=== PATIENT | female | born 1955 | race Caucasian/White ===

== ENCOUNTER 2018-06-06 06:17 | Day surgery (SDC) | payer MEDICAID ==
[2018-06-02 12:06] VITALS: BMI 28.8
[2018-06-06] MEDS ORDERED: Bupivacaine 0.25% 20 ML INJ IJ ONE (07:15)
[2018-06-06] MEDS ORDERED: Lidocaine/Epinephrine 1% 1:100000 10 ML IJ ONE (07:16)
[2018-06-06] MEDS ORDERED: ceFAZolin IV 2 gm in Dextrose 2 GM/50 ML BAG IVPB ONE (07:16)
[2018-06-06] MEDS ORDERED: Propofol 10 mg/ml Inj (20 ML) ONE (08:01)
[2018-06-06] MEDS ORDERED: Midazolam 2 MG/2 ML VIAL ONE (08:01)
[2018-06-06] MEDS ORDERED: Rocuronium 10 mg/ml (5 ml) ONE (08:55)
[2018-06-06] MEDS ORDERED: Lidocaine Hydrochloride 5 ML INJ ONE (08:55)
[2018-06-06] MEDS ORDERED: Oxycodone/Acetaminophen 5/325 mg Tab PO PRN (10:05)
--- NOTE | 2018-06-06 10:06 | PCM.SURG1 ---
Surgeon's Initial Post Op Note - Surgeon's Notes Surgeon: Chayito Pantograph Engraver: Ricardo PGY4, Richard PGY3 Type of Anesthesia: General Endo, Local Pre-Operative Diagnosis: Cholelithiasis Operative Findings: cirrhotic liver Post-Operative Diagnosis: same Operation Performed: robotic assisted cholecystectomy Specimen/Specimens Removed: gallbladder Estimated Blood Loss: EBL {In ML}: 20 Blood Products Given: N/A Drains Used: No Drains Post-Op Condition: Good Date of Surgery/Procedure: 06/06/18 Time of Surgery/Procedure: 10:06
[2018-06-06] MEDS ORDERED: Lactated Ringer's 1,000 ML IV ONE (10:13)
[2018-06-06] MEDS ORDERED: Neostigmine Methylsulfate 3mg/3ml Syringe IV ONE (10:15)
[2018-06-06] MEDS ORDERED: Phenylephrine 10 mg/ml Inj ONE (10:15)
[2018-06-06 10:33] VITALS: TEMP 97
[2018-06-06] MEDS: HYDROmorphone 0.5 mg/0.5 ml ISec IVP PRN ×2 (10:50→11:18)
[2018-06-06 14:24] VITALS: RESP 18
[2018-06-06 15:52] VITALS: BP 127/70; PULSE 89; O2SAT 98
--- NOTE | 2018-06-06 21:24 | OP ---
PROCEDURE DATE: 06/06/2018 PREOPERATIVE DIAGNOSES: 1. Gallbladder polyp. 2. History of hepatitis C. POSTOPERATIVE DIAGNOSES: 1. Gallbladder polyp. 2. Chronic cholecystitis with post-infectious adhesion. 3. 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 PROCEDURES DONE: 1. Robotic cholecystectomy. 2. Robotic lysis of adhesion. SURGEON: Done by Ramon flaherty MD. PELLET POST INSPECTOR: Sree Silva, PGY-4 resident; and Omer Ramos, PGY-3 resident. ANESTHESIA: General endotracheal tube anesthesia. ESTIMATED BLOOD LOSS: Around 20 mL. DRAINS: None. PATHOLOGY: The gallbladder was sent for the pathology. COMPLICATIONS: None. INTRAOPERATIVE FINDING: The patient had a multinodular cirrhosis due to hepatitis C. The patient had extensive omental and duodenal adhesions of the Calot's triangle and lysis of adhesion and enterolysis was done in order to enter the Calot's triangle. The patient had changes of chronic cholecystitis and also had a thickened gallbladder wall. Due to cirrhosis, there was some abnormal bleeding from the gallbladder fossa that was controlled effectively. DESCRIPTION OF PROCEDURE: On intraoperative steps, this is a 62-year-old female who was diagnosed with gallbladder polyp, and the patient was consented for robotic cholecystectomy. The patient has history of hepatitis C and possible cirrhosis. The patient was brought to the OR, placed supine on the operating table. After induction of anesthesia, the abdomen was prepped and draped in usual sterile fashion. The supraumbilical transverse incision was made after incising the skin, subcutaneous tissue, and the fascia. Robotic camera port was placed. Pneumo was created. Another 3/8 mm port was placed. Robot was brought in. Camera arm as well as arm 1 and arm 2 were docked. The gallbladder was retracted cranially. The patient found to have omental as well as duodenal and the colonic adhesion in the right upper quadrant. The first lysis of adhesion was done, and the Calot's triangle was entered. After enterolysis, the cystic duct and common bile duct was identified using the Firefly. The dissection was continued. Due to cirrhosis, the patient had some abnormal bleeding from the gallbladder fossa that was controlled. Cystic duct and cystic artery were clipped at three places and cut in between two clips nearby gallbladder and the gallbladder was dissected free from the gallbladder fossa, taken in EndoCatch bag, taken out through the umbilical port site, and sent off the table for the pathology. There was proper hemostasis achieved in the gallbladder fossa; and there was no apparent bleeding identified. We waited approximately 15 minutes after proper hemostasis. Suction irrigation of the perihepatic area as well as the gallbladder fossa was done. After proper hemostasis, all the ports were taken out under vision. Pneumo was deflated. Umbilical port site was closed in two layers, the fascia with 0 Vicryl interrupted suture, skin with 4-0 Monocryl, and dry sterile dressing was applied. The robot was undocked before removing the port. The patient was extubated in OR and sent to the postanesthesia care unit in stable condition. Ramon Stratton MD
== END 2018-06-06 15:55 | disposition home or self-care (01) ==
LOC: C.SDS 06:17
PROVIDERS: ATTEND Surgery Surgical Critical Care
DX: K80.10 Calculus of gallbladder with chronic cholecystitis without obstruction (principal); B19.20 Unspecified viral hepatitis C without hepatic coma; K74.60 Unspecified cirrhosis of liver; K66.0 Peritoneal adhesions (postprocedural) (postinfection)
CPT/HCPCS: 47562; 49329; 88304; 88307; J0690; J1100; J1170; J2250; J2370; J2405; J2704; J2710; J3010; J7120